=== PATIENT | female | born 1965 | race Two or more races ===

== ENCOUNTER 2017-08-28 21:40 | Inpatient (IN) | payer OTHER ==
[~2017-08-28] VITALS: Ht 154.9 cm; Wt 83.0 kg
[~2017-08-28 21:40] MED LIST: AMLO5TAB7 PO; ASPI-1152 PO; LOSA1TAB39 PO; MECL-102 PO; PRAV40TA3 PO; SERT100T12 PO; TRAZ-182 PO
--- NOTE | 2017-08-28 21:55 | NUR ---
BB FAMILY C/O RUQ ABDOMINAL PAIN X2 DAYS WHILE TURNING IN BED, LEFT LEG PAIN AND HIP PAIN. NAD NOTED, VSS, RESP EVEN AND UNLABORED, PT WAS PUT ON HOSPITAL GOWN AND MONITOR, AT .
[2017-08-28] MEDS ORDERED: ONDANSETRON HCL/PF 4 MG/2 ML VIAL ONE (22:17)
[2017-08-28] MEDS ORDERED: HYDROMORPHONE INJ 2 MG/ML DISP.SYRIN ONE ×2 (22:18→23:28)
[2017-08-28] MEDS ORDERED: HYDROMORPHONE INJ 2 MG/ML DISP.SYRIN IV ONE (22:30)
[2017-08-28] MEDS ORDERED: ONDANSETRON HCL/PF 4 MG/2 ML VIAL IVP ONE (22:30)
[2017-08-28 22:37] LABS: BASOPHILS # (AUTO) 0.1 /CMM (0.0-0.2); BASOPHILS % (AUTO) 0.8 % (0.0-2.0); EOSINOPHILS % (AUTO) 0.8 % (0.0-6.0); HEMATOCRIT 39 % (33-45); HEMOGLOBIN 13.1 g/dL (11.5-14.8); LYMPHOCYTES # (AUTO) 2.3 /CMM (0.8-4.8); MEAN CORPUSCULAR HGB CONC 34 g/dl (31.0-36.0); MEAN CORPUSCULAR VOLUME 85 fL (82-100); MONOCYTES # (AUTO) 0.7 /CMM (0.1-1.30); MONOCYTES % (AUTO) 6.7 % (2.0-12.0); NEUTROPHILS # (AUTO) 6.8 /CMM (1.8-8.9); NEUTROPHILS % (AUTO) 68.7 % (43.0-81.0); PLATELET COUNT (AUTO) 216 /CMM (150-450); RDW COEFFICIENT OF VARIATION 13.1 (11.5-15.0); RED BLOOD CELL COUNT(AUTO) 4.51 MIL/uL (4.0-5.2)
--- NOTE | 2017-08-28 22:41 | NUR ---
pt to ctscan
[2017-08-28 22:48] LABS: CALCIUM, SERUM 8.8 mg/dL (8.5-10.1); CREATININE 0.7 mg/dL (0.6-1.3); POTASSIUM 3.1 mmol/L (3.5-5.1)
[2017-08-28 22:52] LABS: INR 0.92 (0.87-1.13)
[2017-08-28 22:54] LABS: ALBUMIN 3.1 g/dL (3.4-5.0); BILIRUBIN,DIRECT 0.1 mg/dL (0.0-0.2); BILIRUBIN,TOTAL 0.3 mg/dL (0.2-1.0)
--- NOTE | 2017-08-28 23:17 | NUR ---
report given to LUAN Franco
[2017-08-28] MEDS ORDERED: POTASSIUM CHLORIDE 20 MEQ TAB.PRT.SR PO ONE ×2 (23:22→23:30)
[2017-08-28] MEDS ORDERED: HYDROMORPHONE 1 MG/1 ML DISP.SYRIN IV ONE (23:30)
[2017-08-29] VITALS (8 sets, daily range): BP systolic 140–173; BP diastolic 70–101
--- NOTE | 2017-08-29 00:28 | NUR ---
MS BED 208. 1
[2017-08-29] MEDS ORDERED: PIPERACILLIN /TAZOBACTAM 3.375 G in IV D5W 50 ML IV ONE (00:30)
--- NOTE | 2017-08-29 00:45 | NUR ---
GAVE REPORT TO 2WEST RN FOR CONTINUITY OF CARE.
--- NOTE | 2017-08-29 01:45 | NUR ---
MS REGISTERED NURSE SUPERVISOR NOTES ADMITTED THIS 52 Y.O.FEMALE FROM ER PER BERT UNDER THE SERVICE OF AMRIT MONET.CHIEF COMPLAINTS OF ABDOMINAL PAIN X 2 DAYS LEAF TIER.ALERT,ORIENTED X4,ANGOLAN,ABLE TO SPEAK SPANISH.WITH KNOWN HISTORY OF STROKE 2016,NOTED WEAK DEVELOPMENTAL THERAPIST ON LEFT HAND,STRONG ON RIGHT HAND.ABLE TO WALK WITH STEADY GAIT.NO SKIN ISSUES.LIVES ALONE.SALINE LOCK LEFT HAND INTACT AND PATENT,ZOSYN 3.375 GM INFUSING FROM ER.ORIENTED TO ROOM SET UP,BED ON LOWEST POSITION AND LOCKED.CALL LIGHT IN REACH,NEEDS ANTICIPATED.
[2017-08-29] MEDS ORDERED: PIPERACILLIN /TAZOBACTAM 3.375 G VIAL IV ONE (01:47)
--- NOTE | 2017-08-29 01:55 | NUR ---
PT TRANSFERED TO [facility] IN STABLE CONDITION. PT TOLERATED TRANSFER AND CARE ENDORSED TO SIMONE RN FOR CONTINUITY OF CARE.
[2017-08-29] MEDS ORDERED: MAGNESIUM HYDROXIDE 30 ML UDC PO PRN (02:30)
[2017-08-29] MEDS ORDERED: ENOXAPARIN SODIUM 40 MG/0.4 ML DISP.SYRIN SQ SCH (02:30)
[2017-08-29] MEDS ORDERED: ONDANSETRON HCL/PF 4 MG/2 ML VIAL IVP PRN (02:30)
[2017-08-29] MEDS ORDERED: ZOLPIDEM TARTRATE 5 MG TABLET PO PRN (02:30)
[2017-08-29] MEDS ORDERED: PANTOPRAZOLE 40 MG VIAL IV SCH (02:30)
--- NOTE | 2017-08-29 02:33 | NUR ---
MS RN NOTES STARTED ON PROTONIX 40MG IV ORDERED
--- NOTE | 2017-08-29 02:33 | NUR ---
MS RN NOTES STARTED ON LOVENOX 40MG ,GIVEN SQ VIA LEFT LOWER ABDOMEN
[2017-08-29] MEDS: IV NS 0.9% 1,000 ML IV PRN ×2 (02:35→17:07)
--- NOTE | 2017-08-29 02:35 | NUR ---
MS RN NOTES STARTED ON NS AT 75ML/HR RATE ORDERED.
--- NOTE | 2017-08-29 06:55 | NUR ---
MS RN NOTES KEPT NPO ORDERED.IVF INFUSING,SITE REMAINS PATENT.IV ABX TOLERATED WELL.NO NAUSEA/VOMITING NOTED.ABDOMINAL PAIN ON AND OFF MANAGEABLE.IN NO ACUTE DISTRESS.REPORT GIVEN TO SHORTY ROLAND FOR MELANIE.
--- NOTE | 2017-08-29 07:30 | NUR ---
MS/RN Patient received Patient received from night assistant. Call light within reach, will continue to monitor and ensure safety.
[2017-08-29] MEDS: PIPERACILLIN /TAZOBACTAM 3.375 G in IV D5W 50 ML IV SCH ×3 (08:16→17:07)
[2017-08-29] MEDS: ACETAMINOPHEN 325 MG TABLET PO PRN (08:20)
--- NOTE | 2017-08-29 08:30 | NUR ---
MS/RN Medications IVAB hung as ordered, no reaction seen. Complaining of headache, tylenol 650mg given with small sips of water due to being NPO. All needs attended, call light within reach, updated as to plan for today. Will continue to monitor and ensure safety.
--- NOTE | 2017-08-29 10:30 | NUR ---
MS/RN Rounds Patient comfortable at this time, no needs. Will continue to monitor.
--- NOTE | 2017-08-29 12:30 | NUR ---
MS/RN IVAB IVAB administered as ordered, no reaction observed.
--- NOTE | 2017-08-29 14:37 | NUR ---
MS/RN S/B Sara Dodge BATTERY STACKER Seen by BATTERY STACKER - continue with zosyn, gentle hydration and NPO status. Colonoscopy to be arranged as outpatient.
--- NOTE | 2017-08-29 18:16 | NUR ---
MS/RN End note Has remained in stable condition throughout the shift, no pain medications required apart from tylenol this morning for headache. Remains NPO at this time, all IVAB administered as ordered, IV shows no signs of infiltration. Will endorse to carbonizer tester.
--- NOTE | 2017-08-29 19:35 | NUR ---
MS RN NOTES ON BED SLEEPING,AROUSABLE TO VERBAL STIMULI.BREATHING REGULAR,NOT IN ANY FORM OF DISTRESS.REMAINS NPO ORDERED FOR ABDOMINAL REST.IVF IN PROGRESS,SITE REMAINS PATENT ON LEFT HAND.CALL LIGHT IN REACH,NEEDS ANTICIPATED.
--- NOTE | 2017-08-29 19:55 | NUR ---
MS RN NOTES NOTED BLOOD PRESSURE READING OF 173/83,ASYMPTOMATIC,HAVING ABDOMINAL PAIN AT THE MOMENT.ACNP EXPERIENCE SPECIALIST WAS AMRIT VARELA CALLED BACK AND MADE AWARE OF PATIENT HIGH BLOOD PRESSURE READING,WITH ORDERS NOTED AND CARRIED OUT.
[2017-08-29] MEDS: MORPHINE SULFATE INJ 4 MG/ML DISP.SYRIN IV PRN (20:28)
--- NOTE | 2017-08-29 20:28 | NUR ---
MS RN NOTES PAIN MANAGEMENT C/O ABDOMINAL PAIN 8/10 ON PAUN SCALE,MORPHINE 2MG IV GIVEN ORDERED FOR SEVERE PAIN.
[2017-08-29] MEDS ORDERED: MECLIZINE HCL 25 MG TABLET PO PRN (20:30)
[2017-08-29] MEDS: LOSARTAN POTASSIUM 50 MG TABLET PO SCH (21:05)
[2017-08-29] MEDS: PANTOPRAZOLE 40 MG VIAL IV SCH (21:05)
[2017-08-29] MEDS: ASPIRIN EC 81 MG TABLET.DR PO SCH (21:05)
--- NOTE | 2017-08-29 21:05 | NUR ---
MS RN NOTES STARTED ON COZAAR 50MG PO FOR BLOOD PRESSURE OF 173/83 AND ASPIRIN EC 81MG WITH SIPS OF WATER FOR STROKE MANAGEMENT.
[2017-08-29] MEDS: ENOXAPARIN SODIUM 40 MG/0.4 ML DISP.SYRIN SQ SCH (21:06)
[2017-08-29] MEDS: ATORVASTATIN 40 MG TABLET PO SCH (22:01)
[2017-08-29] MEDS: TRAZODONE 50 MG TABLET PO SCH (22:02)
--- NOTE | 2017-08-29 23:30 | NUR ---
MS RN NOTES BLOOD PRESSURE RE CHECK 140/70,PULSE-65
--- NOTE | 2017-08-30 | NUR ---
MS RN NOTES SLEEPING,DUE IVPB ABX ROSALIA HUNG
[2017-08-30] MEDS: PIPERACILLIN /TAZOBACTAM 3.375 G in IV D5W 50 ML IV SCH ×4 (00:09→17:20)
[2017-08-30 05:07] LABS: BASOPHILS % (AUTO) 0.3 % (0.0-2.0); EOSINOPHILS % (AUTO) 0.9 % (0.0-6.0); HEMATOCRIT 37 % (33-45); HEMOGLOBIN 12.6 g/dL (11.5-14.8); LYMPHOCYTES # (AUTO) 1.6 /CMM (0.8-4.8); LYMPHOCYTES % (AUTO) 25.2 % (20.0-44.0); MEAN CORPUSCULAR HGB CONC 34 g/dl (31.0-36.0); MEAN CORPUSCULAR VOLUME 86 fL (82-100); MONOCYTES # (AUTO) 0.4 /CMM (0.1-1.30); MONOCYTES % (AUTO) 6.2 % (2.0-12.0); NEUTROPHILS # (AUTO) 4.3 /CMM (1.8-8.9); NEUTROPHILS % (AUTO) 67.4 % (43.0-81.0); PLATELET COUNT (AUTO) 195 /CMM (150-450); RDW COEFFICIENT OF VARIATION 13.1 (11.5-15.0); RED BLOOD CELL COUNT(AUTO) 4.28 MIL/uL (4.0-5.2); WHITE BLOOD COUNT (AUTO) 6.4 K/uL (4.3-11.0)
--- NOTE | 2017-08-30 05:30 | NUR ---
MS RN NOTES DUE GRACIELA LINDSEY
[2017-08-30 05:41] LABS: CALCIUM, SERUM 8.7 mg/dL (8.5-10.1); CREATININE 0.5 mg/dL (0.6-1.3); MAGNESIUM 2.1 mg/dL (1.8-2.4); PHOSPHORUS 3.6 mg/dL (2.5-4.9); POTASSIUM 3.8 mmol/L (3.5-5.1)
--- NOTE | 2017-08-30 06:37 | NUR ---
MS RN NOTES PAIN MANAGEMENT EFFECTIVE,SLEPT WELL POST MIDNIGHT.KEPT NPO ORDERED.WILL START ON 24 HOUR COLLECTION ORDERED.IN NO ACUTE DISTRESS.WILL ENDORSE TO DAY NURSE FOR MELANIE.
--- NOTE | 2017-08-30 07:35 | NUR ---
M/S RN - Assessment Patient in bed awake, A/O x 4, abdominal pain controlled, denies n/v, abdomen soft, afebrile, no apparent distress seen. Patient currently NPO, on IVF NS at 75 ml/hr infusing well on the left hand with no signs of infiltration. Skin is intact. Patient ambulatory with steady gait. All needs attended and met. Patient updated on treatment plan. Will continue with current medical management.
--- NOTE | 2017-08-30 08:00 | NUR ---
M/S RN - Notes Patient was educated regarding 24-hour urine collection for metanephrines fraction. Urine collection was started today at 8:00.
[2017-08-30 08:14] VITALS: BP 146/73
[2017-08-30] MEDS: SERTRALINE HCL 50 MG TABLET PO SCH (08:52)
[2017-08-30] MEDS: LOSARTAN POTASSIUM 50 MG TABLET PO SCH (08:53)
[2017-08-30] MEDS: AMLODIPINE BESYLATE 10 MG TABLET PO SCH (08:53)
[2017-08-30] MEDS: ASPIRIN EC 81 MG TABLET.DR PO SCH (08:53)
[2017-08-30] MEDS: MORPHINE SULFATE INJ 4 MG/ML DISP.SYRIN IV PRN ×2 (09:06→16:20)
[2017-08-30] MEDS: IV NS 0.9% 1,000 ML IV PRN (13:55)
[2017-08-30 16:00] VITALS: BP 147/75
--- NOTE | 2017-08-30 17:54 | NUR ---
M/S RN - Notes No new events seen, remain afebrile, abdominal pain well controlled by Morphine 2 mg IVP q4h as needed, able to tolerate low fiber/low residue diet, 24-hour urine collection in progress for metanephrines fraction. Continue IVF to maintain hydration and Zosyn for diverticulitis. All needs anticipated and met. Will continue with current plan of care.
--- NOTE | 2017-08-30 19:20 | NUR ---
M/S RN NOTES Patient in bed, awake, A/O X 4, verbally responsive. No distress, no sob noted. denies n/v, abdomen soft, afebrile. On IVF NS at 75 ml/hr infusing well on the left hand with no signs of infiltration. Skin is intact. Patient ambulatory with steady gait. All needs attended and met. Patient aware and verbalized understanding regarding 24 hour urine collection. call light within reach. will cont to monitor.
[2017-08-30 20:00] VITALS: BP 148/90
[2017-08-30] MEDS: PANTOPRAZOLE 40 MG VIAL IV SCH (21:33)
[2017-08-30] MEDS: TRAZODONE 50 MG TABLET PO SCH (21:34)
[2017-08-30] MEDS: ATORVASTATIN 40 MG TABLET PO SCH (21:34)
[2017-08-30] MEDS: ENOXAPARIN SODIUM 40 MG/0.4 ML DISP.SYRIN SQ SCH (21:42)
[2017-08-31] MEDS: PIPERACILLIN /TAZOBACTAM 3.375 G in IV D5W 50 ML IV SCH ×2 (00:04→05:13)
[2017-08-31 06:33] LABS: BASOPHILS % (AUTO) 0.4 % (0.0-2.0); EOSINOPHILS % (AUTO) 1.3 % (0.0-6.0); HEMATOCRIT 38 % (33-45); HEMOGLOBIN 12.9 g/dL (11.5-14.8); LYMPHOCYTES % (AUTO) 36.3 % (20.0-44.0); MEAN CORPUSCULAR HGB CONC 34 g/dl (31.0-36.0); MEAN CORPUSCULAR VOLUME 86 fL (82-100); MONOCYTES # (AUTO) 0.4 /CMM (0.1-1.30); MONOCYTES % (AUTO) 6.7 % (2.0-12.0); NEUTROPHILS # (AUTO) 3.1 /CMM (1.8-8.9); NEUTROPHILS % (AUTO) 55.3 % (43.0-81.0); PLATELET COUNT (AUTO) 188 /CMM (150-450); RDW COEFFICIENT OF VARIATION 13.4 (11.5-15.0); RED BLOOD CELL COUNT(AUTO) 4.38 MIL/uL (4.0-5.2); WHITE BLOOD COUNT (AUTO) 5.5 K/uL (4.3-11.0)
--- NOTE | 2017-08-31 06:40 | NUR ---
M/S RN NOTES Patient in bed, awake, a/o x4, verbally responsive. No distress, no sob noted, stable. On IVF NS at 75 ml/hr infusing well on the left hand with no signs of infiltration. Skin is intact. All needs attended and met. All due meds given. call light within reach. will endorse to next shift for myriam.
[2017-08-31 07:05] LABS: CALCIUM, SERUM 8.7 mg/dL (8.5-10.1); CREATININE 0.5 mg/dL (0.6-1.3); PHOSPHORUS 3.8 mg/dL (2.5-4.9); POTASSIUM 3.6 mmol/L (3.5-5.1)
[2017-08-31 07:15] LABS: MAGNESIUM 1.2 mg/dL (1.8-2.4)
--- NOTE | 2017-08-31 07:25 | NUR ---
RECEIVED A CALL FROM DIAGNOSTIC LAB , REGARDING MG : 1.2. WILL ENDORSE TO NEXT SHIFT RN ACCORDINGLY.
--- NOTE | 2017-08-31 07:30 | NUR ---
ENDORSED TO LUAN SANTO REGARDING MG : 1.2. ACCORDINGLY.
[2017-08-31 08:00] VITALS: BP 135/88
[2017-08-31] MEDS ORDERED: Magnesium 1GM/D5W 100ML PREMIX PIGGYBACK IV ONE (08:00)
--- NOTE | 2017-08-31 08:07 | NUR ---
RN OPENING NOTES RECEIVED PT. IN BED A&OX3. BREATHING IS UNLABORED, AND EVEN ON ROOM AIR. NO S/S OF ACUTE DISTRESS. IV FLUIDS RUNNING AT 75 ML/HR. BED IS IN LOWEST, AND LOCKED POSITION. 2 SIDE RAILS UP, AND CALL LIGHT WITHIN REACH. WILL CONTINUE TO ASSESS AND MONITOR.
[2017-08-31] MEDS ORDERED: Magnesium 1GM/D5W 100ML PREMIX 100 ML IV SCH (08:30)
[2017-08-31] MEDS: SERTRALINE HCL 50 MG TABLET PO SCH (09:00)
--- NOTE | 2017-08-31 09:00 | NUR ---
RN NOTES DISCUSSED WITH PT.'S MAGNESIUM LEVEL IS 1.2 NEW ORDER WAS GIVEN TO REPLACE MAGNESIUM.
[2017-08-31 09:30] VITALS: BP 135/88
[2017-08-31] MEDS: ACETAMINOPHEN 325 MG TABLET PO PRN (09:30)
[2017-08-31] MEDS: ASPIRIN EC 81 MG TABLET.DR PO SCH (09:30)
[2017-08-31] MEDS: AMLODIPINE BESYLATE 10 MG TABLET PO SCH (09:30)
[2017-08-31] MEDS: LOSARTAN POTASSIUM 50 MG TABLET PO SCH (09:30)
[2017-08-31] MEDS ORDERED: METR500T PO (09:54)
[2017-08-31] MEDS ORDERED: CIPR-262 PO (09:54)
[2017-08-31] MEDS ORDERED: POTASSIUM CHLORIDE 20 MEQ TAB.PRT.SR PO ONE (10:00)
[2017-08-31] MEDS ORDERED: MAGNESIUM OXIDE 400 MG TABLET PO ONE ×2 (10:30)
--- NOTE | 2017-08-31 12:45 | NUR ---
CORPORATE LEGAL MANAGER PT. WAS DISCHARGED IN MEDICALLY STABLE CONDITION. PT. LEFT WITH DAUGHTER IN LAW BY PRIVATE CAR. DISCHARGE INSTRUCTIONS WERE PROVIDED WITH EDUCATIONS, AND PT. VERBALIZED UNDERSTANDING. ID BAND, AND IV WAS REMOVED WITHOUT COMPLICATIONS. PRESCRIPTION WAS GIVEN TO PT. WITH EDUCATION, AND PT. VERBALIZED UNDERSTANDING. BELONGINGS LIST WAS CHECKED, AND SIGNED. ALL QUESTIONS ANSWERED. PT. WAS OFFERED TO USE A WHEELCHAIR TO LEAVE HOSPITAL BUT DENIED. PT. LEFT WITH DISCHARGE PACKET.
[2017-09-03 06:08] LABS: RENIN, PLASMA 1.183 ng/mL/hr (0.167-5.380)
== END 2017-08-31 13:30 | disposition home or self-care (01) | DRG 244 ==
LOC: ER 21:45 → MEDSG2 08-29 00:53 → MED 08-31 06:22
PROVIDERS: ADMIT Nurse Practitioner Acute Care; ATTEND Nurse Practitioner Acute Care
DX: K57.32 Diverticulitis of large intestine without perforation or abscess without bleeding (principal); K76.0 Fatty (change of) liver, not elsewhere classified; I10 Essential (primary) hypertension; F32.9 Major depressive disorder, single episode, unspecified; D35.02 Benign neoplasm of left adrenal gland; E78.5 Hyperlipidemia, unspecified; E87.6 Hypokalemia; N83.292 Other ovarian cyst, left side; G47.9 Sleep disorder, unspecified
CPT/HCPCS: 36415; 73552; 76856-TC; 80048-TC; 80061-TC; 80076-TC; 82088; 83690-TC; 83735-TC; 83835; 84100-TC; 84244; 85025-TC; 85730-TC; 87081-TC; A4606; C9113; J1170; J1650; J2270; J2405; J2543; J3475; J7030; J7060; Z7610